=== PATIENT | male | born 1945 | race Caucasian/White ===

== ENCOUNTER → 2020-04-13 | Outpatient (CLI) | payer MEDICARE | LOC: LAB 11:48 | DX: M54.5 Low back pain (principal) | CPT/HCPCS: 36415; 82565 ==

== ENCOUNTER → 2020-04-16 | Outpatient (CLI) | payer MEDICARE | LOC: MRI 08:07 | DX: M54.5 Low back pain (principal); M54.2 Cervicalgia; M48.061 Spinal stenosis, lumbar region without neurogenic claudication; M51.35 Other intervertebral disc degeneration, thoracolumbar region; M89.8X8 Other specified disorders of bone, other site; M51.24 Other intervertebral disc displacement, thoracic region; M48.04 Spinal stenosis, thoracic region; M51.36 Other intervertebral disc degeneration, lumbar region; M25.78 Osteophyte, vertebrae; M48.02 Spinal stenosis, cervical region; M50.223 Other cervical disc displacement at C6-C7 level; M47.812 Spondylosis without myelopathy or radiculopathy, cervical region; Z98.1 Arthrodesis status | CPT/HCPCS: 72131; 72141; 72146; 72158; A9577 ==